=== PATIENT | male | born 1990 | race Caucasian/White ===

== ENCOUNTER 2022-01-27 13:03 | Inpatient (IN) | payer MEDICAID ==
[~2022-01-27] VITALS: Ht 167.6 cm; Wt 61.2 kg
--- NOTE | 2022-01-27 13:10 | NUR ---
PT BIBA BED 5
--- NOTE | 2022-01-27 13:16 | NUR ---
AT PT BEDSIDE
[2022-01-27 13:17] VITALS: BP 139/96
[2022-01-27] MEDS ORDERED: ONDANSETRON 4 MG/2 ML VIAL IVP ONE (13:20)
[2022-01-27] MEDS ORDERED: LORazepam 2 MG/ML VIAL IVP ONE ×2 (13:20→14:15)
[2022-01-27] MEDS ORDERED: FOLIC ACID 5 MG, MULTIVITAMIN-12 10 ML in NACL 0.9% 1,000 ML IV ONE (13:25)
[2022-01-27] MEDS ORDERED: NACL 0.9% 1,000 ML IV ONE (13:25)
[2022-01-27] MEDS ORDERED: THIAMINE 200 MG/2 ML VIAL IM ONE (13:25)
[2022-01-27] MEDS ORDERED: MAG SULF 2000 MG/WATER PREMIX 50 ML IV ONE (13:25)
--- NOTE | 2022-01-27 13:32 | NUR ---
LAB AT PT BEDSIDE
[2022-01-27 13:48] LABS: BASOPHILS % (AUTO) 0.5 % (0.0-2.0); EOSINOPHILS # (AUTO) 0.1 K/uL (0-0.4); EOSINOPHILS % (AUTO) 0.6 % (0.0-4.0); HEMATOCRIT 38.5 % (36-52); HEMOGLOBIN 13.1 g/dL (12.0-18.0); LYMPHOCYTES # (AUTO) 1.1 K/uL (2.0-11.5); LYMPHOCYTES % (AUTO) 11.7 % (20.5-51.1); MEAN CORPUSCULAR HEMOGLOBIN 35 pg (27-31); MEAN CORPUSCULAR HGB CONC 34 g/dL (33-37); MEAN CORPUSCULAR VOLUME 102.4 fL (80-94); MONOCYTES % (AUTO) 10.4 % (1.7-9.3); NEUTROPHILS # (AUTO) 7.4 K/uL (1.8-7.7); NEUTROPHILS % (AUTO) 76.8 % (42.2-75.2); PLATELET COUNT (AUTO) 165 K/uL (140-450); RED BLOOD CELL COUNT(AUTO) 3.76 MIL/uL (4.20-6.10); RED CELL DISTRIBUTION WIDTH 14.7 % (11.6-13.7); WHITE BLOOD COUNT (AUTO) 9.6 K/uL (4.8-10.8)
[2022-01-27 14:10] LABS: ALBUMIN 4.4 g/dL (3.4-5.0); ANION GAP 21.6 (8-16); ASPARTATE AMINOTRANSFERASE 68 U/L (15-37); CHLORIDE 100 mmol/L (98-107); CREATININE 0.7 mg/dL (0.6-1.3); GFR ARICAN-AMERICAN 170 mL/min (>90); GLUCOSE 98 mg/dL (74-106); LIPASE 411 U/L (73-393); POTASSIUM 3.6 mmol/L (3.5-5.1); SALICYLATE 4.3 mg/dL (2.8-20.0); SODIUM SERUM 138 mmol/L (136-145); TOTAL BILIRUBIN 0.5 mg/dL (0.0-1.0); UREA NITROGEN, BLOOD 5 mg/dL (7-18)
[2022-01-27 14:30] LABS: ACETAMINOPHEN < 0.5 ug/ml (10-30)
[2022-01-27] MEDS ORDERED: HYDROcodone/APAP 5/325 MG 1 TAB TAB PO PRN (16:25)
[2022-01-27] MEDS ORDERED: LORazepam 2 MG/ML VIAL IM/IVP PRN (16:25)
[2022-01-27] MEDS ORDERED: POTASSIUM CHLORIDE 10 MEQ TABER PO PRN (16:25)
[2022-01-27] MEDS ORDERED: DOCUSATE SODIUM 100 MG GELCAP PO PRN (16:25)
[2022-01-27] MEDS ORDERED: ACETAMINOPHEN 325 MG TAB PO PRN (16:25)
[2022-01-27] MEDS ORDERED: ONDANSETRON 4 MG/2 ML VIAL IM/IVP PRN (16:25)
[2022-01-27] MEDS ORDERED: SODIUM PHOS / POTASSIUM PHOS 1 PKT PDR PO PRN (16:25)
[2022-01-27] MEDS ORDERED: NACL 0.9% 1,000 ML IV SCH (16:25)
[2022-01-27] MEDS ORDERED: MAGNESIUM OXIDE 400 MG TAB PO PRN (16:25)
[2022-01-27] MEDS ORDERED: MORPHINE SULFATE 2 MG/ML SYR IVP PRN (16:25)
[2022-01-27 16:48] LABS: MAGNESIUM 1.7 mg/dL (1.8-2.4); PHOSPHORUS 2.9 mg/dL (2.5-4.9)
[2022-01-27] MEDS ORDERED: chlordiazePOXIDE 25 MG CAP PO SCH (17:00)
[2022-01-27 17:01] LABS: BARBITURATE, URINE NEGATIVE ng/ml (NEG <=200); BENZODIAZEPINE, URINE NEGATIVE ng/mL (NEG <=200); COCAINE, URINE NEGATIVE ng/mL (NEG <=300)
[2022-01-27 17:02] LABS: CANNABINOID, URINE POSITIVE ng/mL (NEG <=50); OPIATE, URINE NEGATIVE ng/mL (NEG <=2000); PHENCYCLIDINE SCREEN,URINE NEGATIVE ng/mL (NEG <=25)
--- NOTE | 2022-01-27 17:29 | NUR ---
PT IS OUT OF BED. PT TOOK LEADS AND MONITORS OFF. PT STATES HE WANTS TO GO HOME AND DOES NOT WANT TO REMIAN IN THE HOSPITAL. AT PT BEDSIDE.
--- NOTE | 2022-01-27 17:30 | NUR ---
DR KAUR EXPLAINED THE RISKS OF LEAVING. PT VERABLIZED UNDERSTANDING. PT A/O X4, AMBULATORY WITH STEADY GAIT. BROTHER AT BEDSIDE. ADMITTING DR, DR GRESHAM MADE AWARE
--- NOTE | 2022-01-27 17:35 | NUR ---
IV removed, catheter intact and site benign. Applied folded 4x4 gauze and tape to stop bleeding.
[2022-01-27 17:40] VITALS: BP 103/87
--- NOTE | 2022-01-27 17:42 | NUR ---
Patient does not wish to proceed with medical care recommended by . Patient given information related to possible complications, up to and including , which could occur as a result of leaving hospital at this time BY . Patient verbalizes understanding of risks involved leaving against medical advice. Patient has signed AMA form. MADE AWARE.
[2022-01-28] MEDS ORDERED: MULTIVITAMIN 1 TAB PO SCH (09:00)
[2022-01-28] MEDS ORDERED: FOLIC ACID 1 MG TAB PO SCH (09:00)
[2022-01-28] MEDS ORDERED: THIAMINE 100 MG TAB PO SCH (09:00)
== END 2022-01-27 17:42 | disposition left against medical advice (07) | DRG 53 ==
LOC: MED 13:03 → MTU 16:28
PROVIDERS: ADMIT Hospitalist; ATTEND Hospitalist
DX: G40.509 Epileptic seizures related to external causes, not intractable, without status epilepticus (principal); F10.139 Alcohol abuse with withdrawal, unspecified; Y90.9 Presence of alcohol in blood, level not specified; Z20.822 Contact with and (suspected) exposure to COVID-19; Z53.29 Procedure and treatment not carried out because of patient's decision for other reasons
CPT/HCPCS: 36415; 80053; 80305; 83690; 83735; 84100; 85025; 96365; 96366; 96375; 99285; A9153; G0480; G0482; J2060; J2405; J3411; J3475; J3490; J7030